=== PATIENT | female | born 1950 | race Asian ===

== ENCOUNTER 2022-02-18 14:19 | Emergency (ER) | payer MEDICARE ==
[~2022-02-18] VITALS: Ht 165.1 cm; Wt 63.5 kg
[2022-02-18 14:20] VITALS: BP_SYST 132
--- NOTE | 2022-02-18 14:20 | NUR ---
BROUGHT IN BY [facility] AND TRIAGED. AWAITING ER BED ASSIGNMENT
--- NOTE | 2022-02-18 14:40 | NUR ---
TAKEN TO RADIOLOGY VIA WHEELCHAIR, WILL RETURN TO [facility]. REPORT GIVEN TO MIAN
--- NOTE | 2022-02-18 15:24 | NUR ---
Patient brought in bls after slipping on rug at post office and falling forward face first into a door. Patient has hematoma to the left eyebrow and pain to nose. Pain 4/10. AOx4.
--- NOTE | 2022-02-18 16:32 | NUR ---
ER Dr. ANTHONY at bedside examining patient.
[2022-02-18 17:09] VITALS: BP_SYST 128
--- NOTE | 2022-02-18 17:09 | NUR ---
Patient given written and verbal discharge instructions and verbalizes understanding. ER MD discussed with patient the results and treatment provided. Patient in stable condition. ID arm band removed. NO RX given. Patient educated on pain management and to follow up with PMD. Pain Scale 0/10 Opportunity for questions provided and answered.
== END 2022-02-18 17:09 | disposition home or self-care (01) ==
LOC: SED 14:19
DX: S00.83XA Contusion of other part of head, initial encounter (principal); Z79.899 Other long term (current) drug therapy; W01.0XXA Fall on same level from slipping, tripping and stumbling without subsequent striking against object, initial encounter; Y93.89 Activity, other specified; Y92.89 Other specified places as the place of occurrence of the external cause; Y99.8 Other external cause status
CPT/HCPCS: 70450-TC; 70486-TC; 76376; 99284